=== PATIENT | male | born 1945 | race Caucasian/White ===

== ENCOUNTER 2016-11-03 09:12 | Day surgery (SDC) | payer OTHER ==
[2016-10-29 19:40] VITALS: BMI 32.9
[2016-11-03] MEDS ORDERED: Nitroglycerin 50mg in D5W 0 ML IV ONE (09:53)
[2016-11-03] MEDS ORDERED: Lidocaine 2% Inj (20ml) ONE ×2 (09:53→11:12)
[2016-11-03] MEDS ORDERED: Iohexol 350mgl/ml 50 ML ONE (09:53)
[2016-11-03] MEDS ORDERED: Iodixanol 320 mg/ml 150 ml Bottle IV ONE (09:53)
[2016-11-03] MEDS ORDERED: DiphenhydrAMINE 50 mg/ml Inj ONE (10:01)
[2016-11-03] MEDS ORDERED: Famotidine 20mg/50ml 50 ML IVPB ONE (10:01)
[2016-11-03] MEDS ORDERED: Midazolam 2 MG/2 ML VIAL ONE (10:59)
[2016-11-03] MEDS ORDERED: Iodixanol 320 MG/ML 100 ML BOTTLE IV ONE (11:37)
[2016-11-03] MEDS ORDERED: Sodium Chloride 0.9% 1,000 ML IV SCH (12:45)
[2016-11-03] MEDS ORDERED: A C T ELECTRONICS XX ONE (12:59)
--- NOTE | 2016-11-03 13:16 | CARDCATH ---
PROCEDURE DATE: 11/03/2016 PROCEDURES: 1. Right coronary artery drug-eluting stent placement. 2. Left anterior descending coronary artery drug-eluting stent placement. CLINICAL INDICATIONS: 1. Recurrent angina. 2. Hypertension. 3. Hyperlipidemia. 4. Coronary artery disease. REFERRING PHYSICIAN: Dr. Jacqueline Winkler. PERFORMING PHYSICIAN: Dr. Atif Young. PROCEDURE: After informed consent, patient was prepped and draped in the usual sterile fashion. Lid ocaine 2% was given in the right groin for local anesthesia. Using micropuncture technique, 6-Cymro sheath was introduced into right common femoral artery. The patient was preloaded with [address] avix, 325 mg of aspirin and 5000 units of IV heparin. ACT was maintained about 250 throughout the pr ocedure. RIGHT CORONARY ARTERY INTERVENTION: Right coronary artery was engaged using JR4 6-Cymro guided cath eter. Right coronary angiogram has confirmed 80% mid stenosis. There was distally TREVIN 3 flow noted . The right coronary artery was threaded using a run through coronary wire. The lesion was directly stented using 3.5 x 23 Xience Alpine drug-eluting stent. Excellent final angiographic results with brisk TREVIN-3 flow noted. LEFT ANTERIOR DESCENDING CORONARY ARTERY INTERVENTION: LAD was engaged using JL 3.5 6-Cymro guided catheter. Initial angiogram has confirmed a mid LAD 85% stenosis with TREVIN 3 flow in the entire LAD. The lesion was predilated using a run through coronary wire. The lesion was directly stented using 3.5 x 23 Xience Alpine drug-eluting stent. Excellent final angiographic results with brisk TREVIN-3 f low noted. CONCLUSION: Successful drug-eluting stent placement in both the left anterior descending coronary ar casey and right coronary artery. Excellent final angiographic results. Recommends dual antiplatelet therapy for 1 year. Recommend aspirin and statin for life. Continue other medications for secondary prevention of mccloud ry artery disease. Atif Young MD cc: [id number] TT: 11/03/2016 13:14:34 [place]
[2016-11-03 16:43] VITALS: TEMP 98
[2016-11-03 16:46] VITALS: RESP 20
--- NOTE | 2016-11-03 17:23 | CARD ---
APPROVED REPORT EKG Measurement Heart [id number] VA [id number] <Conclusion> Normal sinus rhythm Right atrial enlargement Pulmonary disease pattern Abnormal ECG
--- NOTE | 2016-11-03 17:26 | CARD ---
APPROVED REPORT EKG Measurement Heart [id number] MA 166P69 [id number] <Conclusion> Normal sinus rhythm Low voltage QRS Borderline ECG
[2016-11-03 18:42] VITALS: BP 137/89; PULSE 100
== END 2016-11-03 19:11 | disposition short-term general hospital (02) ==
LOC: CATH 09:12 → 2RSO 12:26 → CATH 19:11
PROVIDERS: ATTEND Internal Medicine Cardiovascular Disease
DX: I25.118 Atherosclerotic heart disease of native coronary artery with other forms of angina pectoris (principal); I10 Essential (primary) hypertension; E78.5 Hyperlipidemia, unspecified
CPT/HCPCS: 85175; 93005; 99152; C1760; C1769 ×2; C1874; C1887 ×4; C1894; C2629; C9600; C9601; J1200; J1644 ×2; J2250; J2930; J3010; J7040; Q9967 ×2